=== PATIENT | male | born 1965 | race Caucasian/White ===

== ENCOUNTER 2024-10-15 23:01 | Emergency (ER) | payer OTHER ==
[~2024-10-15] VITALS: Ht 172.7 cm; Wt 95.3 kg
[2024-10-15 23:59] LABS: ADD URINE CULTURE NO; APPEARANCE,URINE CLEAR (CLEAR); BLOOD, URINE 2+ Ery/uL (NEGATIVE); LEUKOCYTE ESTERASE ,URINE NEGATIVE (NEGATIVE); NITRITE, URINE NEGATIVE (NEGATIVE); SQUAMOUS EPITHELIAL CELL,UR None Seen /HPF (None Seen); UGLUCOSE NEGATIVE (NEGATIVE)
[2024-10-16 00:30] VITALS: BP 114/71; TEMP 97.9; O2SAT 96
== END 2024-10-16 00:30 | disposition home or self-care (01) ==
LOC: ER 23:05
DX: N40.1 Benign prostatic hyperplasia with lower urinary tract symptoms (principal); R33.9 Retention of urine, unspecified; I10 Essential (primary) hypertension
CPT/HCPCS: 81001